=== PATIENT | female | born 1970 | race African-American/Black ===

== ENCOUNTER → 2016-12-10 | Outpatient (CLI) | payer OTHER ==
[~2016-12-10] MED LIST: AMLO10TA2 PO; CLON0.1T PO; CYMB30CA PO; DULO1CAP3 PO; FLUO1TAB3 PO; FLUO20CA4 PO; HYDR12.56 PO; HYDR50CA PO; KETO60IN6 IM; LISI40TA PO; METH125I2 IM; TRIA.1%T TOPICAL
[2016-12-10 10:53] LABS: AUTOMATED NEUTROPHIL # 3.8 TH/MM3 (1.8-7.7); BASOPHIL # 0.1 TH/MM3 (0-0.2); BASOPHIL % 0.9 % (0.0-2.0); EOSINOPHIL # 0.2 TH/MM3 (0-0.4); EOSINOPHIL % 2.8 % (0.0-4.0); HEMATOCRIT 38.7 % (35.0-46.0); HEMO FLAGS DIFF FINAL; LYMPH % 27.1 % (9.0-44.0); LYMPHOCYTE # 1.6 TH/MM3 (1.0-4.8); MEAN CELL VOLUME 86.5 FL (80.0-100.0); MEAN CORPUSCULAR HEMOGLOBIN 29.2 PG (27.0-34.0); MEAN CORPUSCULAR HGB CONC 33.8 % (32.0-36.0); MONO % 6.7 % (0.0-8.0); NEUT % 62.5 % (16.0-70.0); PLATELET COUNT 281 TH/MM3 (150-450); RED BLOOD COUNT 4.47 MIL/MM3 (4.00-5.30); RED CELL DISTRIBUTION WIDTH 13.9 % (11.6-17.2)
[2016-12-10 11:17] LABS: ALKALINE PHOSPHATASE 96 U/L (45-117); ALT (GPT) 41 U/L (10-53); HDL CHOLESTEROL 60.2 MG/DL (40.0-60.0); TOTAL BILIRUBIN ADULT 0.3 MG/DL (0.2-1.0)
[2016-12-10 11:19] LABS: ANION GAP 6 MEQ/L (5-15); AST (GOT) 26 U/L (15-37); BICARBONATE 26.7 MEQ/L (21.0-32.0); BLOOD UREA NITROGEN 9 MG/DL (7-18); CHLORIDE 111 MEQ/L (98-107); GLOMERULAR FILTRATION RATE 72 ML/MIN (>89); GLUCOSE,FASTING 101 MG/DL (74-99); LDL CHOLESTEROL 79 MG/DL (0-99); POTASSIUM 4.2 MEQ/L (3.5-5.1); SODIUM (NA) 144 MEQ/L (136-145)
== END ==
LOC: CLAB 10:26
PROVIDERS: ATTEND Family Medicine
DX: F32.9 Major depressive disorder, single episode, unspecified (principal); K64.9 Unspecified hemorrhoids; I10 Essential (primary) hypertension; M25.562 Pain in left knee; E66.9 Obesity, unspecified; M19.90 Unspecified osteoarthritis, unspecified site
CPT/HCPCS: 36415; 80053; 80061; 84443; 85025

== ENCOUNTER 2017-01-28 19:47 | Emergency (ER) | payer OTHER ==
[~2017-01-28 19:47] MED LIST changes: -CYMB30CA PO; -FLUO1TAB3 PO; -KETO60IN6 IM; -METH125I2 IM
[2017-01-28 19:49] VITALS: BP 224/109; PULSE 70; RESP 16; O2SAT 98
[2017-02-04] MEDS ORDERED: CYMB30CA PO (10:32)
[2017-02-04] MEDS ORDERED: METH125I2 IM (10:49)
[2017-02-04] MEDS ORDERED: KETO60IN6 IM (10:49)
[2017-05-02] MEDS ORDERED: FLUO1TAB3 PO (16:02)
== END 2017-01-28 23:35 | disposition left against medical advice (07) ==
LOC: NED 19:47
DX: M25.562 Pain in left knee (principal)
CPT/HCPCS: 99281

== ENCOUNTER 2017-01-29 12:15 | Emergency (ER) | payer OTHER ==
[~2017-01-29] VITALS: Ht 165.1 cm; Wt 100.0 kg
[2017-01-29 12:17] VITALS: BP 142/93; PULSE 80; RESP 16; TEMP 98.2; O2SAT 98
[2017-02-04] MEDS ORDERED: CYMB30CA PO (10:32)
[2017-02-04] MEDS ORDERED: METH125I2 IM (10:49)
[2017-02-04] MEDS ORDERED: KETO60IN6 IM (10:49)
[2017-05-02] MEDS ORDERED: FLUO1TAB3 PO (16:02)
== END 2017-01-29 13:40 | disposition left against medical advice (07) ==
LOC: NETRI 12:15
DX: Z53.21 Procedure and treatment not carried out due to patient leaving prior to being seen by health care provider (principal)
CPT/HCPCS: 99281

== ENCOUNTER 2018-04-25 10:55 | Emergency (ER) | payer SELFPAY ==
[~2018-04-25] VITALS: Ht 160 cm; Wt 120.0 kg
[~2018-04-25 10:55] MED LIST changes: +FLUO1TAB3 PO; -FLUO20CA4 PO
[2018-04-25 11:00] VITALS: BP 153/99; PULSE 81; RESP 16; TEMP 98; O2SAT 98
== END 2018-04-25 11:30 | disposition left against medical advice (07) ==
LOC: NED 10:55
DX: R51 Headache (principal)
CPT/HCPCS: 99281